=== PATIENT | female | born 1990 | race Caucasian/White ===

== ENCOUNTER 2020-09-24 17:38 | Emergency (ER) | payer OTHER ==
[~2020-09-24] VITALS: Ht 167.6 cm; Wt 64.6 kg
[2020-09-24] MEDS ORDERED: NS 1,000 ML IV ONE (18:15)
[2020-09-24 18:41] LABS: BASO % 0.3 % (0.0-1.0); EOS % 0.3 % (0.0-3.0); HEMOGLOBIN 11.3 g/dl (12.0-15.5); LYMPH # 2.1 10^3/uL (1.5-5.0); LYMPH % 17.2 % (24.0-44.0); MEAN CORPUSCULAR HEMOGLOBIN 30.3 pg (27.0-33.0); MEAN CORPUSCULAR HGB CONC 33.2 g/dl (32.0-36.5); MEAN CORPUSCULAR VOLUME 91.2 fl (80.0-96.0); MONO # 0.8 10^3/uL (0.0-0.8); MONO % 6.6 % (0.0-5.0); NEUTROPHILS % 75.2 % (36.0-66.0); PLATELET COUNT, AUTOMATED 194 10^3/uL (150-450); RED BLOOD COUNT 3.73 10^6/uL (4.00-5.40); WHITE BLOOD COUNT 11.9 10^3/uL (4.0-10.0)
[2020-09-24 19:39] LABS: BLOOD UREA NITROGEN 11 MG/DL (7-18); CALCIUM LEVEL 8.7 MG/DL (8.5-10.1); CARBON DIOXIDE LEVEL 23 MEQ/L (21-32); CHLORIDE LEVEL 105 MEQ/L (98-107); CREATININE FOR GFR 0.69 MG/DL (0.55-1.30); GLOMERULAR FILTRATION RATE > 60.0 (>60); GLUCOSE, FASTING 92 MG/DL (70-100); HCG, SERUM QUANTITATIVE 19782 MIU/ML; POTASSIUM SERUM 3.3 MEQ/L (3.5-5.1); SODIUM LEVEL 138 MEQ/L (136-145)
--- NOTE | 2020-09-24 20:11 | REPVR ---
PROCEDURE INFORMATION: Exam: US First Trimester, Transabdominal Exam date and time: 09/24/2020 7:39 PM Age: 30 years old Clinical indication: Lmp or gestational age (in weeks): 07/10/20; Antepartum complications; Bleeding; ; Additional info: Vaginal bleeding TECHNIQUE: Imaging protocol: Real-time transabdominal obstetrical ultrasound of the maternal pelvis and a first trimester , less than 14 weeks 0 days, with image documentation. COMPARISON: No relevant prior studies available. FINDINGS: Only transabdominal images were obtained. The patient refused transvaginal imaging. Gestation: There is an abnormal flattened probable gestational sac within the vagina. Probable pole within this with crown-rump length of 6.96 mm, which could correspond to a 6 week 4 day gestation which would correspond to an estimated date of delivery of 05/16/2021. Estimated gestational age based on last menstrual period is 10 weeks 6 days with estimated date of delivery of 04/16/2021. Current gestational age lags one-month behind the estimated gestational age based on last menstrual period. No heart motion was observed. There also appear to be blood products in the vagina. There is some fluid in the endometrial cavity, but no pole is seen within this fluid in the endometrial cavity. At the uterine fundus, the endometrium may measure up to 20 mm where the endometrial cavity is collapsed at the fundus. The fluid in the endometrial cavity is in the body of the uterus and lower uterine segment. Cervix is poorly visualized but appears open on some images. Embryonic/ heart rate: Not detected. Placenta: Placenta is not visualized. It may be too early to visualize, or may not be visualized given suspected spontaneous in progress. This lack of visualization limits evaluation for retroplacental hemorrhage. BIOMETRY: Gestational age (AUA): See "Gestation" finding. MATERNAL: Uterus: The uterus measures 12.3 x 5.7 by 5.6 cm. Cervix: The cervix appears open on some images, not well visualized. Right adnexa: The right ovary is normal in size and echogenicity, measuring 3.6 x 1.8 x 2.6 cm. There is arterial flow to the right ovary. Venous flow was also observed. Left adnexa: The left ovary is normal in size and echogenicity, measuring 3.5 x 1.9 x 3.1 cm. There is arterial flow to the left ovary. Venous flow was also observed. Intraperitoneal space: No free fluid. IMPRESSION: 1. Findings most likely representing a spontaneous in progress, with probable gestational sac containing a probable pole which could correspond to a 6 week 4 day gestation. No heart motion was observed, but it is unclear whether it is too early to visualize heart motion, or whether this is from demise. 2. Nonvisualized placenta. It may be too early to visualize, or may not be visualized given suspected spontaneous in progress. This lack of visualization limits evaluation for retroplacental hemorrhage. 3. If the small structures seen within the fluid in the vagina is a pole, this lags one-month behind estimated gestational age based on last menstrual period. There also appear to be blood products in the vagina. 4. Fluid in the endometrial cavity in the body and lower uterine segment, without pole visualized within this. THIS REPORT CONTAINS FINDINGS THAT MAY BE CRITICAL TO PATIENT CARE. The findings were verbally communicated via telephone conference with [facility] TO[facility]AS at 8:09 PM EST on 09/24/2020. The findings were acknowledged and understood. Electronically signed by: Maureen Dangelo On 09/24/2020 20:10:43 PM
[2020-09-24] MEDS ORDERED: miSOPROStol 200 MCG TAB (S0191) PO STA (20:25)
[2020-09-24] MEDS ORDERED: NORC1TAB7 PO (20:44)
[2020-09-24] MEDS ORDERED: IBUP80TA PO (20:44)
[2020-09-24] MEDS ORDERED: KETOROLAC 30 MG/ML 1ML VIAL IV ONE (20:45)
[2020-09-24 21:03] VITALS: BP 112/84
== END 2020-09-24 21:52 | disposition home or self-care (01) ==
LOC: M ED 17:38
DX: O03.9 Complete or unspecified spontaneous abortion without complication (principal)
CPT/HCPCS: 76801; 80048; 84702; 85025; 86850; 86900; 86901; 93976; 96374; 99284; J1885